=== PATIENT | female | born 1980 | race Hispanic/Latino ===

== ENCOUNTER 2023-03-08 09:07 | Emergency (ER) | payer SELFPAY ==
[2023-03-08 10:54] LABS: SARS-CoV-2 NAA Rapid Test Not Detected (NotDetected)
== END 2023-03-08 11:05 | disposition home or self-care (01) ==
LOC: ERS 09:07
DX: J10.1 Influenza due to other identified influenza virus with other respiratory manifestations (principal)
CPT/HCPCS: 99283

== ENCOUNTER 2023-03-10 22:14 | Emergency (ER) | payer SELFPAY | END 2023-03-11 00:49 | disposition home or self-care (01) | LOC: ERS 22:14 | DX: I10 Essential (primary) hypertension (principal); Z00.00 Encounter for general adult medical examination without abnormal findings | CPT/HCPCS: 99283 ==